=== PATIENT | female | born 1975 | race Caucasian/White ===

== ENCOUNTER 2022-06-02 08:44 | Outpatient (REF) | payer OTHER, SELFPAY ==
[2022-06-02 11:08] LABS: MANUAL DIFF FLAG NO
[2022-06-02 11:21] LABS: Basophils Percent Auto 0.3 % (0-2); Eosinophils Absolute Auto 0.1 X10*3/uL (0.0-0.4); Eosinophils Percent Auto 1.8 % (0-4); Hematocrit 40.8 % (37.0-47.0); Hemoglobin 13.3 g/dl (12.0-16.0); Imm Gran Abs Auto 0.02 X10*3/uL (0.00-0.03); Imm Gran Pct Auto 0.3 % (0.0-0.4); Lymphocytes Absolute Auto 1.6 X10*3/uL (1.2-4.9); Lymphocytes Percent Auto 25.2 % (20-40); Mean Corpuscular HGB Conc 32.6 g/dl (31.0-35.0); Mean Corpuscular Volume 95.1 fL (80.0-98.0); Mean Platelet Volume 10.7 fL (9.4-12.3); Monocytes Absolute Auto 0.3 X10*3/uL (0.1-1.2); Monocytes Percent Auto 5.1 % (2-11); Neutrophils Absolute Auto 4.4 x10*3/uL (2.0-8.3); Neutrophils Percent Auto 67.3 % (45-73); Platelet Count 385 X10*3/uL (160-400); Red Blood Count 4.29 X10*6/uL (4.20-5.50); Red Cell Distribution Width 11.8 % (11.0-16.0); White Blood Count 6.5 X10*3/uL (4.8-10.8)
[2022-06-02 12:29] LABS: Alanine Aminotransferase 42 U/L (0-31); Albumin Level 4.3 g/dL (3.5-5.0); Alkaline Phosphatase 115 U/L (39-117); Anion Gap 17 (12-20); Aspartate Amino Transferase 26 U/L (5-31); Bilirubin Total 0.5 mg/dL (0.0-1.0); Blood Urea Nitrogen 6 mg/dL (9-16); Calcium 9.4 mg/dL (8.4-10.2); Carbon Dioxide 23 mmol/L (22-29); Chloride 102 mmol/L (96-108); Cholesterol 229 mg/dL; Estimated Glomerular Filt Rate > 60; Glucose Fasting 97 mg/dL (60-99); HDL Cholesterol 42 mg/dL; LDL Cholesterol Calculated 156 mg/dl; Potassium 4.5 mmol/L (3.3-5.1); Sodium 137 mmol/L (135-145); Total Protein 7.3 g/dL (6.5-8.0); Triglycerides 158 mg/dL
[2022-06-02 12:55] LABS: Free T4 (Free Thyroxine) 1.36 ng/dL (0.71-1.85); Thyroid Stimulating Hormone 0.95 uIU/mL (0.32-4.0)
[2022-06-03 10:29] LABS: Triiodothyronine T3 Total 132 ng/dL (76-181)
== END 2022-06-02 08:45 | disposition home or self-care (01) ==
LOC: HO.WFDLDS 08:44
PROVIDERS: Visit Provider Family Medicine
DX: Z00.00 Encounter for general adult medical examination without abnormal findings (principal); E03.9 Hypothyroidism, unspecified; R00.0 Tachycardia, unspecified
CPT/HCPCS: 36415; 80053; 80061; 84439; 84443; 84480; 85025

== ENCOUNTER 2022-06-08 09:24 | Outpatient (REF) | payer OTHER, SELFPAY ==
--- NOTE | ~2022-06-08 | XR_ITS ---
EXAMINATION: XR CHEST CLINICAL INFORMATION: Tachycardia. COMPARISON: None TECHNIQUE: 2 views of the chest were obtained. FINDINGS: No significant abnormality is noted involving the heart, lungs, mediastinum, bony thorax or soft tissues. XR/XR chest 2V IMPRESSION: Unremarkable chest examination.
--- NOTE | 2022-06-08 18:10 | PFT_ITS ---
INDICATION: Shortness of breath. SPIROMETRY: FEV1 to FVC 88% with an FEV1 2.54 L, which is 95% predicted and FVC of 2.88 L, which is 86% predicted. No significant response to bronchodilator is noted. Maximum voluntary ventilation is 96% predicted. LUNGS VOLUMES: Total lung capacity 86% predicted with an expiratory residual volume of 21% predicted. DIFFUSION CAPACITY: DLCO 121% predicted. COMPARISON: None. INTERPRETATION: No obstructive or restrictive ventilatory defect identified. No significant response to bronchodilator is noted. Normal maximum voluntary ventilation. Lung volumes are relatively normal except for decrease in expiratory reserve volume which could be secondary to an elevated BMI. Diffusion capacity is significantly elevated suggesting the possibility of exogenous exposure to carbon monoxide such as smoking. Clinical correlation warranted. MD ALEXANDRA Wilson/KELLEE / [id number]
== END 2022-06-08 09:25 | disposition home or self-care (01) ==
LOC: HO.RESP 09:24
PROVIDERS: PCP Family Medicine; Visit Provider Family Medicine
DX: R06.02 Shortness of breath (principal); J45.909 Unspecified asthma, uncomplicated; R00.0 Tachycardia, unspecified
CPT/HCPCS: 71046; 94060; 94727; 94729

== ENCOUNTER 2023-06-06 12:32 | Outpatient (REF) | payer OTHER, SELFPAY ==
[2023-06-06 15:50] LABS: TSH reflex Free T4 0.07 uIU/mL (0.32-4.0)
[2023-06-06 16:24] LABS: Free T4 (Free Thyroxine) 1.41 ng/dL (0.71-1.85)
== END 2023-06-06 12:33 | disposition home or self-care (01) ==
LOC: HO.WFDLDS 12:32
PROVIDERS: Visit Provider Nurse Practitioner Family
DX: E03.9 Hypothyroidism, unspecified (principal)
CPT/HCPCS: 36415; 84439; 84443

== ENCOUNTER 2023-06-08 10:21 | Outpatient (AMB) | payer OTHER, SELFPAY ==
[2023-06-08 10:26] VITALS: BP 146/86; PULSE 114; RESP 13; TEMP 36.6; O2SAT 99; BMI 29.0
--- NOTE | 2023-06-08 10:26 | A.OFFPC_ITS ---
Vital Signs 06/08/23 10:26 Height 5 ft 2 in Weight 158 lb 8 oz BMI 29.0 BP 146/86 H Blood Pressure Location Rt brachial Position Sitting Respiration 13 Pulse 114 H Pulse Source Pulse Oximeter Temp 97.9 F Temp Source Temporal Artery Scan Pulse Oximetry (%) 99 Oxygen Delivery Method Room Air Intake Visit Reasons: GERD, Hypothyroidism Intake Note: Patient would like a refill on cyclobenzaprine. 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 Accompanied by: Self / Same As Patient Allergies erythromycin base [ERYTHROMYCIN BASE] Allergy (Intermediate, Verified 06/08/23 10:35) HIVES lorazepam [From ATIVAN] Allergy (Intermediate, Verified 06/08/23 10:35) PSVT doxylamine [From NYQUIL] Adverse Reaction (Intermediate, Verified 06/08/23 10:35) INSOMNIA ENVIRONMENTAL Allergy (Intermediate, Uncoded 12/20/19 16:34) SNEEZING; WATERY ITCHY EYES; RUNNY NOSE From AUGMENTIN Allergy (Unknown, Uncoded 12/20/19 16:34) HIVES From Augmentin Allergy (Unknown, Uncoded 12/20/19 16:34) HIVES From BENADRYL Adverse Reaction (Intermediate, Uncoded 12/20/19 16:34) AGITATION; PSVT From NYQUIL Adverse Reaction (Intermediate, Uncoded 12/20/19 16:34) INSOMNIA Tobacco use date assessed: 06/08/23 Dental Screening Dental Screen Date: 06/08/23 Did you have a dental visit in the last 12 months?: No Did you have a dental problem in the last 6 months where you did not have access to dental care?: No Was dental information given to patient?: Patient has dentist HPI GERD, Hypothyroidism HPI Details 48 y/o female presents to f/u hypothyroi dism, GERD. TSH level drawn 06/06/23. TSH worsened from 0.95 to 0.07. She is on levothyroxine 175 mcg daily. Blood pressure today 146/86, 114p and had been elevated before. Pt notes blood pressure at home have been good in the systolic 110s to 130s range. She states she has never had a colonoscopy. She is not interested in a cologuard test. [facility] Medical History (Updated 06/08/23 @ 11:55 by Carl Gallego) No pertinent past medical history Surgical History (Updated 06/08/23 @ 10:38 by Dari Peterson MA) No pertinent past surgical history Social History Housing: House Patient Tobacco Use Status: Never used Tobacco e-Cigarette/Vaping Use: Never Used service: No Current occupational status: unemployed Cognitive needs: No Hearing needs: No Vision needs: No Questionnaire Thrive Questionnaire Date Thrive assessed: 05/17/22 ELICIA-7 AMB Questionnaire ELICIA-7 Date ELICIA - 7 assessed: 05/17/22 Source: Developed by Drs. Noel Lujan, Deonna Gonzalez, Alphonso Pierson and colleagues, with an educational ravin from [employer]. Review of Systems Const Denies chills, Denies fatigue, Denies fever(s), Denies headache(s) and Denies w eakness ENT Denies dizziness and Denies headache(s) Card Denies dyspnea Resp Denies cough, Denies dyspnea, Denies wheezing and Denies other (shortness of breath) Musc Denies numbness and Denies tingling Neuro Denies dizziness, Denies headache(s), Denies numbness, Denies tingling and Denies weakness Psych Denies anxiety and Denies depression Endo Denies fatigue Aller/Immun Denies wheezing Physical exam (Primary Care) Vital Signs: Last Vital Signs Temp 97.9 F 06/08/23 10:26 Pulse 114 H 06/08/23 10:26 Resp 13 06/08/23 10:26 BP 146/86 H 06/08/23 10:26 Pulse Ox 99 06/08/23 10:26 Oxygen Delivery Method Room Air 06/08/23 10:26 BMI result Body Mass Index 29.0 Tobacco/Smoking Status: Tobacco use Status Tobacco use date assessed 06/08/23 06/08/23 10:38 Patient Tobacco Use Status Never used Tobacco 06/08/23 10:38 e-Cigarette/Vaping Use Never Used 06/08/23 10:38 Thrive Assessment: Date of Thrive Assessment Date Thrive assessed 05/17/22 06/08/23 10:38 Const General: well developed; No acute distress Nutritional Appearance: well nourished Orientation/consciousness: patient oriented x3 HENMT Head: Yes normocephalic and Yes atraumatic Eyes General: appearance normal, both eyes and all related structures Pupils: Equal, round and reactive pupils present EOM: EOMs intact bilaterally Resp Effort & Inspection: normal respiratory effort Cardio Rate: tachycardic Neuro General: patient oriented x3 and gait normal Cranial nerves: Yes Equal, round and reactive pupils present Psych Affect: normal affect Assessment and Plan Assessment & Plan (1) Hypothyroidism: Code(s): E03.9 - Hypothyroidism, unspecified Plan: TSH?mildly?suppressed. She?will?repeat?this We?discussed?that?if?it?continues?to?be? suppressed?we?may?want?to?decrease?her?levothyroxine?slightly (2) Tachycardia: Code(s): R00.0 - Tachycardia, unspecified Plan: Ongoing?tachycardia?and?there?is?clearly?some?white?coat?syndrome?associated?wit h?this?as?her?heart?rate?and?blood?pressures?are?better?at?home. May?be?multifacto rial?however?and?levothyroxine?level?may?be?a?bit?too?high.??Rechecking?TSH?winston alatorre (3) White coat syndrome without diagnosis of hypertension: Code(s): R03.0 - Elevated blood-pressure reading, without diagnosis of hypertension Plan: As?above,?patient?has?shown?a?log?where?blood?pressures?a re?in?prehypertensive?range?consistently?but?not?in?hypertensive?range. Heart?rates?are?in?the?90s?at?home. (4) Screening for cervical cancer: Code(s): Z12.4 - Encounter for screening for malignant neoplasm of cervix Plan: Followed?by? 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 Medications: Changed From cyclobenzaprine 10 mg PO BID PRN muscle spasm To cyclobenzaprine #20 tabs per 30 days 10 mg PO BID 30 days PRN 20 tabs 0RF muscle spasm Refilled omeprazole 40 mg PO DAILY 30 days 30 caps 0RF levothyroxine 175 mcg PO DAILY 30 days 30 tabs 0RF Coding Level of Care Code Est Pt Level 4 (64052) Diagnoses Hypothyroidism E03.9 Tachycardia R00.0 White coat syndrome without diagnosis of hypertension R03.0 Screening for cervical cancer Z12.4 Breast cancer screening by mammogram Z12.31 Screening for colon cancer Z12.11
== END 2023-06-08 12:09 | disposition home or self-care (01) ==
PROVIDERS: PCP Family Medicine; Visit Provider Family Medicine
DX: E03.9 Hypothyroidism, unspecified (principal); R00.0 Tachycardia, unspecified; R03.0 Elevated blood-pressure reading, without diagnosis of hypertension; Z12.31 Encounter for screening mammogram for malignant neoplasm of breast; Z12.11 Encounter for screening for malignant neoplasm of colon; K21.9 Gastro-esophageal reflux disease without esophagitis
CPT/HCPCS: 99214

== ENCOUNTER 2023-07-20 07:45 | Outpatient (REF) | payer OTHER, SELFPAY ==
[2023-07-20 12:25] LABS: Alanine Aminotransferase 29 U/L (0-31); Albumin Level 4.1 g/dL (3.5-5.0); Alkaline Phosphatase 93 U/L (39-117); Anion Gap 11 (12-20); Aspartate Amino Transferase 25 U/L (5-31); Bilirubin Total 0.5 mg/dL (0.0-1.0); Blood Urea Nitrogen 7 mg/dL (9-16); Calcium 9.2 mg/dL (8.4-10.2); Carbon Dioxide 25 mmol/L (22-29); Chloride 104 mmol/L (96-108); Cholesterol 175 mg/dL (<200); Estimated Glomerular Filt Rate > 60; Glucose Fasting 93 mg/dL (60-99); HDL Cholesterol 49 mg/dL (>40); LDL Cholesterol Calculated 112 mg/dL (<100); Potassium 4.3 mmol/L (3.3-5.1); Sodium 136 mmol/L (135-145); Triglycerides 74 mg/dL (<150)
[2023-07-20 12:44] LABS: Free T4 (Free Thyroxine) 1.21 ng/dL (0.71-1.85); Thyroid Stimulating Hormone 0.36 uIU/mL (0.32-4.0)
[2023-07-21 09:03] LABS: Triiodothyronine T3 Total 110 ng/dL (76-181)
== END 2023-07-20 07:46 | disposition home or self-care (01) ==
LOC: HO.WFDLDS 07:45
PROVIDERS: Visit Provider Family Medicine
DX: Z00.00 Encounter for general adult medical examination without abnormal findings (principal); R74.01 Elevation of levels of liver transaminase levels; E78.00 Pure hypercholesterolemia, unspecified; E03.9 Hypothyroidism, unspecified
CPT/HCPCS: 36415; 80053; 80061; 84439; 84443; 84480

== ENCOUNTER → 2023-08-10 10:40 | Outpatient (AMB) | payer OTHER, SELFPAY ==
--- NOTE | 2023-08-10 10:42 | A.OFFPC_ITS ---
Vital Signs 08/10/23 10:43 Height 5 ft 2 in Weight 155 lb BMI 28.3 BP 148/78 H Blood Pressure Location Lt brachial Position Sitting Pulse 97 Pulse Source Pulse Oximeter Pulse Oximetry (%) 99 Oxygen Delivery Method Room Air Intake Visit Reasons: hypothyroidism hyperlipidemia and elevated liver. Intake Note: Patient is here to follow up on her blood work. She would also like refill of Ventolin and Flonase today. Allergies erythromycin base [ERYTHROMYCIN BASE] Allergy (Intermediate, Verified 08/10/23 10:44) HIVES lorazepam [From ATIVAN] Allergy (Intermediate, Verified 08/10/23 10:44) PSVT doxylamine [From NYQUIL] Adverse Reaction (Intermediate, Verified 08/10/23 10:44) INSOMNIA ENVIRONMENTAL Allergy (Intermediate, Uncoded 08/10/23 10:44) SNEEZING; WATERY ITCHY EYES; RUNNY NOSE From AUGMENTIN Allergy (Unknown, Uncoded 08/10/23 10:44) HIVES From Augmentin Allergy (Unknown, Uncoded 08/10/23 10:44) HIVES From BENADRYL Adverse Reaction (Intermediate, Uncoded 08/10/23 10:44) AGITATION; PSVT From NYQUIL Adverse Reaction (Intermediate, Uncoded 08/10/23 10:44) INSOMNIA Medication List - Last Reconciled 08/10/23 by Brien Macias MD albuterol 90 mcg/actuation mcg inhalation cyclobenzaprine 10 mg PO BID PRN 30 days fluticasone propionate 50 mcg/actuation 2 sprays intranasal DAILY 30 days fluticasone propionate 220 mcg/actuation 2 puffs inhalation BID 30 days levonorgestrel-ethinyl estrad 0.15 mg-30 mcg (91) 1 tab PO DAILY levothyroxine 150 mcg PO DAILY 90 days mometasone (Asmanex Twisthaler) 2 inhalations inhalation BID 30 days omeprazole 40 mg PO DAILY 90 days Tobacco use date assessed: 08/10/23 Dental Screening Dental Screen Date: 08/10/23 Did you have a dental visit in the last 12 months?: No Did you have a dental problem in the last 6 months where you did not have access to dental care?: No Was dental information given to patient?: Patient has dentist HPI hypothyroidism hyperlipidemia and elevated liver. HPI Details 48 y/o female presents to f/u hypothyroi dism, hyperlipidemia and elevated liver enzymes. Labs were drawn 07/20/23. Reviewed labs with pt. Triglycerides 74. TC 175. LDL improved from 156 to 112. HDL 49. TSH improved from 0.07 to 0.36. She is on levothyroxine 150mcg daily. Liver enzymes improved from 42 to 29. HPI Comments History of Present Illness Details Documentation assistance for Brien Macias MD, was provided by Carl Gallego, Scrap Sorter on 08/10/2023 11:06 AM EST. Tavarez, Dr. Macias, have read, observed, and verified documentation. [facility] Medical History No pertinent past medical history Surgical History No pertinent past surgical history Social History Housing: House Patient Tobacco Use Status: Never used Tobacco e-Cigarette/Vaping Use: Never Used service: No Current occupational status: unemployed Cognitive needs: No Hearing needs: No Vision needs: Yes (Patient wears glasses.) Questionnaire PHQ-9 Over the last 2 weeks, how often have you been bothered by any of the following problems? 1. Little interest or pleasure in doing things: not at all 2. Feeling down, depressed, or hopeless: not at all 3. Trouble falling or staying asleep, or sleeping too much: not at all 4. Feeling tired or having little energy: not at all 5. Poor appetite or overeating: not at all 6. Feeling bad about yourself - or that you are a failure or have let yourself or your family down: not at all 7. Trouble concentrating on things, such as reading the newspaper or watching television: not at all 8. Moving or speaking so slowly that other people could have noticed. Or the opposite - being so fidgety or restless that you have been moving around a lot more than usual: not at all 9. Thoughts that you would be better off or of hurting yourself in some way: not at all Total score: 0 Depression Screening Interpretation: Negative Depression Screening Done: Yes 40523 - PHQ-9 Billing: Yes Source: Developed by Drs. Noel Lujan, Alphonso Lorenzana and colleagues, with an educational ravin from [employer]. Thrive Questionnaire Date Thrive assessed: 08/10/23 I am a: Patient What is your living situation today?: I have a steady place to live Within the past 12 months, did the food you bought not last and you didn't have the money to get more?: Never true Within the past 12 months, did you worry whether your food would run out before you got money to buy more?: Never true Do you have trouble paying for medicines?: No Do you have trouble getting transportation to medical appointments?: No Do you have trouble paying your heating and electricity bill?: No Do you have trouble taking care of your child, family member or friend?: No Do you have trouble with day-to-day activities such as bathing, preparing meals, shopping, managing finances, etc.?: No Are you currently unemployed and looking for a job?: No Are you interested in more education?: No THRIVE Score: 0 AUDIT C Alcohol Use Questionnaire (AUDIT-C) 1. How often do you have a drink containing alcohol?: 4 or more times a week 2. How many drinks containing alcohol do you have on a typical day when you are drinking?: 1 or 2 3. How often do you have six or more drinks on one occasion?: Never Total Score: 4 ELICIA-7 AMB Questionnaire ELICIA-7 Date ELICIA - 7 assessed: 08/10/23 Feeling nervous, anxious, or on edge: 0 = Not at all Not being able to stop or control worryin = Not at all Worrying too much about different things: 0 = Not at all Trouble relaxin = Not at all Being so restless that it is hard to sit still: 0 = Not at all Becoming easily annoyed or irritable: 0 = Not at all Feeling afraid as if something awful might happen: 0 = Not at all Total ELICIA-7 score (0-4 normal; 5-9 mild; 10-14 moderate; 15-21 severe): 0 Source: Developed by Drs. Noel Lujan, Deonna Gonzalez, Alphonso Pierson and colleagues, with an educational ravin from [employer]. ELICIA-7 Assessment Billing ELICIA-7 Assessment Tool: ELICIA-7 Assessment 82269 Review of Systems Const Denies chills, Denies fatigue, Denies fever(s), Denies headache(s) and Denies weakness ENT Denies dizziness and Denies headache(s) Card Denies chest pain, Denies lightheadedness, Denies dyspnea and Denies other (Palpitations) Resp Denies cough, Denies dyspnea, Denies wheezing and Denies other ( shortness of breath) Musc Denies numbness and Denies tingling Neuro Denies dizziness, Denies headache(s), Denies numbness, Denies tingling, Denies paresthesias and Denies weakness Psych Denies anxiety and Denies depression Endo Denies fatigue Aller/Immun Denies wheezing Physical exam (Primary Care) Vital Signs: Last Vital Signs Pulse 97 08/10/23 10:43 BP 148/78 H 08/10/23 10:43 Pulse Ox 99 08/10/23 10:43 Oxygen Delivery Method Room Air 08/10/23 10:43 BMI result Body Mass Index 28.3 Tobacco/Smoking Status: Tobacco use Status Tobacco use date assessed 08/10/23 08/10/23 10:54 Patient Tobacco Use Status Never used Tobacco 08/10/23 10:43 e-Cigarette/Vaping Use Never Used 08/10/23 10:43 PHQ-9: PHQ-9 Score PHQ-9: Total score 0 08/10/23 11:06 Depression Screening Interpretation: Negative Thrive Assessment: Date of Thrive Assessment Date Thrive assessed 08/10/23 08/10/23 10:54 Const General: no acute distress and well developed Nutritional Appearance: well nourished Orientation/consciousness: patient oriented x3 [facility] Head: Yes normocephalic and Yes atraumatic Eyes General: appearance normal, both eyes and all related structures Pupils: Equal, round and reactive pupils present EOM: EOMs intact bilaterally Resp Effort & Inspection: normal respiratory effort Auscultation: clear to auscultation bilaterally Cardio Rate: regular rate Rhythm: regular rhythm Heart sounds: S1 normal heart sound present, S2 normal heart sound present, no gallops, no murmurs and no rubs Neuro General: patient oriented x3 and gait normal Cranial nerves: Yes Equal, round and reactive pupils present Psych Affect: normal affect Assessment and Plan Assessment & Plan (1) Hypothyroidism: Code(s): E03.9 - Hypothyroidism, unspecified Plan: Levothyroxine?was?decreased?from?175?mcg?to?150?mcg?daily TSH,?free?T4?and?total?T3?are?all?now?within?normal?range Continue?current?medication (2) Elevated ALT measurement: Code(s): R74.01 - Elevation of levels of liver transaminase levels Plan: She?had?had?mild?ALT?elevation.??Liver?enzymes?now?within?normal?range?with?repe at?lab?work. (3) Elevated LDL cholesterol level: Code(s): E78.00 - Pure hypercholesterolemia, unspecified Plan: Patient?had?had?history?of?elevated?cholesterol.??She?was?encouraged?to?work?at? a?diet?low?in?saturated?fats?and?cholesterol?and?increase?exercise. Lipid?levels?all?now?within?normal?range Encouraged?her?to?continue?lifestyle?changes. (4) White coat syndrome without diagnosis of hypertension: Code(s): R03.0 - Elevated blood-pressure reading, without diagnosis of hypertension Plan: Blood?pressure?in?office?is?elevated.??She?has?brought?in?logs?of?her?blood?pres sures?in?the?past?and?has?clear?white?coat?syndrome Will?continue?to?monitor?at?home. Orders: Orders Comprehensive [place]. Panel Fast Today Z00.00 - Encounter for general adult medical examination without abnormal findings Lipid Panel Today Z00.00 - Encounter for general adult medical examination without abnormal findings Triiodothyronine T3 Total Today E03.9 - Hypothyroidism, unspecified Microalbumin, Random (w Creat) Today I10 - Essential (primary) hypertension UA and rflx microscopic Today Z00.00 - Encounter for general adult medical examination without abnormal findings Free T4 (Free Thyroxine) Today E03.9 - Hypothyroidism, unspecified Thyroid Stimulating Hormone Today E03.9 - Hypothyroidism, unspecified Medications: New albuterol sulfate 90 mcg/actuation (Ventolin HFA) 2 puffs inhalation Q4-6H 30 days PRN 8.5 grams 6RF shortness of breath or wheezing Refilled fluticasone propionate 220 mcg/actuation 2 puffs inhalation BID 30 days 12 grams 3RF R06.02 - Shortness of breath Coding Level of Care Code Est Pt Level 4 (80479) Diagnoses Hypothyroidism E03.9 Elevated ALT measurement R74.01 Elevated LDL cholesterol level E78.00 White coat syndrome without diagnosis of hypertension R03.0 Additional Codes ELICIA-7 Assessment Billing - ELICIA-7 Assessment Tool: ELICIA-7 Assessment [id number] ([id number])
[2023-08-10 10:43] VITALS: BP 148/78; PULSE 97; O2SAT 99; BMI 28.3
== END ==
PROVIDERS: PCP Family Medicine; Visit Provider Family Medicine
DX: E03.9 Hypothyroidism, unspecified (principal); R74.01 Elevation of levels of liver transaminase levels; E78.00 Pure hypercholesterolemia, unspecified; R03.0 Elevated blood-pressure reading, without diagnosis of hypertension
CPT/HCPCS: 99214

== ENCOUNTER 2024-02-20 08:24 | Outpatient (REF) | payer OTHER, SELFPAY ==
[2024-02-20 12:13] LABS: Alanine Aminotransferase 40 U/L (0-31); Albumin Level 4.3 g/dL (3.5-5.0); Alkaline Phosphatase 83 U/L (39-117); Anion Gap 13 (12-20); Aspartate Amino Transferase 28 U/L (5-31); Bilirubin Total 0.4 mg/dL (0.0-1.0); Blood Urea Nitrogen 6 mg/dL (9-16); Calcium 9.3 mg/dL (8.4-10.2); Carbon Dioxide 25 mmol/L (22-29); Chloride 103 mmol/L (96-108); Cholesterol 201 mg/dL (<200); Estimated Glomerular Filt Rate > 60; Glucose Fasting 95 mg/dL (60-99); HDL Cholesterol 54 mg/dL (>40); LDL Cholesterol Calculated 126 mg/dL (<100); Sodium 137 mmol/L (135-145); Total Protein 7.3 g/dL (6.5-8.0); Triglycerides 106 mg/dL (<150)
[2024-02-20 12:41] LABS: Free T4 (Free Thyroxine) 1.29 ng/dL (0.71-1.85); Thyroid Stimulating Hormone 0.73 uIU/mL (0.32-4.0)
[2024-02-21 07:54] LABS: Triiodothyronine T3 Total 92 ng/dL (76-181)
== END 2024-02-20 08:25 | disposition home or self-care (01) ==
LOC: HO.WFDLDS 08:24
PROVIDERS: Visit Provider Family Medicine
DX: Z00.00 Encounter for general adult medical examination without abnormal findings (principal); E78.00 Pure hypercholesterolemia, unspecified; E03.9 Hypothyroidism, unspecified
CPT/HCPCS: 36415; 80053; 80061; 84439; 84443; 84480

== ENCOUNTER 2024-02-23 10:20 | Outpatient (AMB) | payer OTHER, SELFPAY ==
--- NOTE | 2024-02-23 10:24 | MHC.PC.OV ---
Vital Signs 02/23/24 10:27 Height 5 ft 2 in Weight 150 lb BMI 27.4 BP 146/80 H Blood Pressure Location Rt brachial Position Sitting Respiration 18 Pulse 101 H Pulse Source Pulse Oximeter Temp 99.7 F Temp Source Temporal Artery Scan Pulse Oximetry (%) 98 Oxygen Delivery Method Room Air Intake Visit Reasons: med refill/ lab FU Intake Note: medication refill and lab review Allergies erythromycin base [ERYTHROMYCIN BASE] Allergy (Intermediate, Verified 02/23/24 10:25) HIVES lorazepam [From ATIVAN] Allergy (Intermediate, Verified 02/23/24 10:25) PSVT doxylamine [From NYQUIL] Adverse Reaction (Intermediate, Verified 02/23/24 10:25) INSOMNIA ENVIRONMENTAL Allergy (Intermediate, Uncoded 08/10/23 10:44) SNEEZING; WATERY ITCHY EYES; RUNNY NOSE From AUGMENTIN Allergy (Unknown, Uncoded 08/10/23 10:44) HIVES From Augmentin Allergy (Unknown, Uncoded 08/10/23 10:44) HIVES From BENADRYL Adverse Reaction (Intermediate, Uncoded 08/10/23 10:44) AGITATION; PSVT From NYQUIL Adverse Reaction (Intermediate, Uncoded 08/10/23 10:44) INSOMNIA Tobacco use date assessed: 08/10/23 Dental Screening Dental Screen Date: 08/10/23 HPI med refill/ lab FU HPI Details 48 y/o female presents for an extended exam with f/u labs and health maintenance. Labs drawn 02/20/24. Reviewed labs with pt. Triglycerides 106. TC 201. LDL 126. HDL 54. TSH level 0.73. She is on levothyroxine 150mcg daily. HPI Comments History of Present Illness Details Documentation assistance for Brien Macias MD, was provided by Carl Gallego, [employer] Machine Operator Helper on 02/23/2024 at 11:19 AM EST. I, Dr. Macias, have read, observed, and verified documentation. [facility] Medical History No pertinent past medical history Surgical History No pertinent past surgical history Social History Housing: House Patient Tobacco Use Status: Never used Tobacco e-Cigarette/Vaping Use: Never Used service: No Current occupational status: unemployed Cognitive needs: No Hearing needs: No Vision needs: Yes (Patient wears glasses.) Questionnaire PHQ-9 Over the last 2 weeks, how often have you been bothered by any of the following problems? 1. Little interest or pleasure in doing things: not at all 2. Feeling down, depressed, or hopeless: not at all 3. Trouble falling or staying asleep, or sleeping too much: not at all 4. Feeling tired or having little energy: not at all 5. Poor appetite or overeating: not at all 6. Feeling bad about yourself - or that you are a failure or have let yourself or your family down: not at all 7. Trouble concentrating on things, such as reading the newspaper or watching television: not at all 8. Moving or speaking so slowly that other people could have noticed. Or the opposite - being so fidgety or restless that you have been moving around a lot more than usual: not at all 9. Thoughts that you would be better off or of hurting yourself in some way: not at all Total score: 0 Source: Developed by Drs. Noel Lujan, Deonna Gonzalez, Alphonso Pierson and colleagues, with an educational ravin from [employer]. Thrive Questionnaire Date Thrive assessed: 08/10/23 I am a: Patient What is your living situation today?: I have a steady place to live Within the past 12 months, did the food you bought not last and you didn't have the money to get more?: I choose not to answer this question Within the past 12 months, did you worry whether your food would run out before you got money to buy more?: I choose not to answer this question Do you have trouble paying for medicines?: I choose not to answer this question Do you have trouble getting transportation to medical appointments?: I choose not to answer this question Do you have trouble paying your heating and electricity bill?: I choose not to answer this question Do you have trouble taking care of your child, family member or friend?: I choose not to answer this question Do you have trouble with day-to-day activities such as bathing, preparing meals, shopping, managing finances, etc.?: I choose not to answer this question Are you currently unemployed and looking for a job?: I choose not to answer this question Are you interested in more education?: I choose not to answer this question Please select the resources that you would like help with: None Currently or been in a relationship where the following occur: I choose not to answer THRIVE Score: 0 AUDIT C Alcohol Use Questionnaire (AUDIT-C) 1. How often do you have a drink containing alcohol?: 4 or more times a week 2. How many drinks containing alcohol do you have on a typical day when you are drinking?: 1 or 2 3. How often do you have six or more drinks on one occasion?: Never Total Score: 4 ELICIA-7 AMB Questionnaire ELICIA-7 Date ELICIA - 7 assessed: 08/10/23 Feeling nervous, anxious, or on edge: 0 = Not at all Not being able to stop or control worryin = Not at all Worrying too much about different things: 0 = Not at all Trouble relaxin = Not at all Being so restless that it is hard to sit still: 0 = Not at all Becoming easily annoyed or irritable: 0 = Not at all Feeling afraid as if something awful might happen: 0 = Not at all Total ELICIA-7 score (0-4 normal; 5-9 mild; 10-14 moderate; 15-21 severe): 0 Source: Developed by Drs. Noel Lujan, Deonna Gonzalez, Alphonso Pierson and colleagues, with an educational ravin from [employer]. Review of Systems Const Denies chills, Denies fatigue, Denies fever(s), Denies headache(s) and Denies weakness Eyes Denies change in vision ENT Denies dizziness, Denies headache(s), Denies hearing loss, Denies nasal congestion, Denies sinus pain, Denies sinus pressure and Denies sore throat Card Denies chest pain, Denies lightheadedness, Denies dyspnea and Denies other (palpitations) Resp Denies cough, Denies dyspnea and Denies wheezing GI Denies abdominal pain, Denies melena, Denies hematochezia, Denies change in bowel habits, Denies dyspepsia and Denies nausea Denies hematuria and Denies dysuria Musc Denies abnormal gait, Denies myalgias, Denies arthralgias, Denies numbness and Denies tingling Skin/Breast Denies rash, Denies unusual bruising and Denies wounds Neuro Denies abnormal gait, Denies dizziness, Denies headache(s), Denies memory loss, Denies numbness, Denies Sensory deficit (Neuro), Denies tingling and Denies weakness Psych Denies anxiety, Denies depression and Denies memory loss Endo Denies cold intolerance, Denies fatigue, Denies heat intolerance, Denies polydipsia and Denies polyuria Larry/Lymph Denies easy bleeding and Denies easy bruising Aller/Immun Denies wheezing Physical exam (Primary Care) Vital Signs: Last Vital Signs Temp 99.7 F 02/23/24 10:27 Pulse 101 H 02/23/24 10:27 Resp 18 02/23/24 10:27 BP 146/80 H 02/23/24 10:27 Pulse Ox 98 02/23/24 10:27 Oxygen Delivery Method Room Air 02/23/24 10:27 BMI result Body Mass Index 27.4 Tobacco/Smoking Status: Tobacco use Status Tobacco use date assessed 08/10/23 02/23/24 10:24 Patient Tobacco Use Status Never used Tobacco 02/23/24 10:24 e-Cigarette/Vaping Use Never Used 02/23/24 10:24 PHQ-9: PHQ-9 Score PHQ-9: Total score 0 02/23/24 10:24 Thrive Assessment: Date of Thrive Assessment Date Thrive assessed 08/10/23 02/23/24 10:24 Currently or been in a relationship where the following occur: I choose not to answer Const General: no acute distress, well developed, alert and awake Nutritional Appearance: well nourished Orientation/consciousness: patient oriented x3 HENMT Head: Yes normocephalic and Yes atraumatic Ears: hearing grossly normal bilaterally and TM's normal bilaterally General nose exam: Normal external nose present and Normal nares present Mouth: Normal oral and palatal mucosa present and moist mucous membranes Teeth and gingiva: dentition normal Throat: Yes posterior oropharynx normal Eyes General: appearance normal, both eyes and all related structures Pupils: Equal, round and reactive pupils present and Pupil accommodation reflex normal EOM: EOMs intact bilaterally Neck Neck: Yes normal visual inspection, Yes no lymphadenopathy and Yes trachea midline Thyroid: Thyroid normal Carotids: no bruits Lymphatic: no lymphadenopathy noted Chest Chest palpation & inspection: normal inspection of the chest Resp Effort & Inspection: normal respiratory effort Auscultation: clear to auscultation bilaterally Cardio Rate: regular rate Rhythm: regular rhythm Heart sounds: S1 normal heart sound present, S2 normal heart sound present, no gallops, no murmurs and no rubs Bruits: no abdominal aortic bruits and no carotid bruits GI Palpation (GI): No Abdominal aortic bruit present, Soft to palpation, nontender, No hepatosplenomegaly present and No Rebound tenderness present Auscultation: normal bowel sounds General: Yes no CVA tenderness Back/Spine/Pelvis Back: no CVA tenderness Cervical Spine: cervical ROM normal and No Cervical spine tenderness Thoracic/Lumbar Spine: thoraco-lumbar ROM normal, No pain with thoraco-lumbar ROM, No thoracic spinal tenderness and No lumbar spinal tenderness Skin Lesions: no lesions Rashes: no rashes Trauma: no lacerations or abrasions Wounds: no wounds Nails: normal Neuro General: patient oriented x3 Cranial nerves: Yes Equal, round and reactive pupils present Cognition (Neuro): normal cognition Gait exam (Neuro): Normal gait present Motor exam (neuro): 5/5 motor strength present throughout Sensory Exam: No Sensory deficit (Neuro) Deep tendon reflexes (DTR's): Right patellar reflex intensity grade: 2+ and Left patellar reflex intensity grade: 2+ Extrem General: Yes normal to inspection and No edema Psych Appearance: grossly normal Affect: normal affect Attitude: cooperative Thought process: Normal thought process present Coding Level of Care Code Est Pt Level 4 (61430) Diagnoses White coat syndrome without diagnosis of hypertension R03.0 Elevated LDL cholesterol level E78.00 Hypothyroidism E03.9 Screening for cervical cancer Z12.4 Breast cancer screening by mammogram Z12.31 Elevated ALT measurement R74.01 Screening for colon cancer Z12.11 Adult general medical exam Z00.00 Assessment & Plan Assessment & Plan (1) White coat syndrome without diagnosis of hypertension: Code(s): R03.0 - Elevated blood-pressure reading, without diagnosis of hypertension Category: Medical Plan: Longstanding?white?coat?syndrome. Patient?says?blood?pressures?at?home?are?120s?over?70s Asked?her?check?periodically?bring?log?in?to?office?for?review?when?she?is?scheduled?for?appointments (2) Elevated LDL cholesterol level: Code(s): E78.00 - Pure hypercholesterolemia, unspecified Category: Medical Plan: LDL?cholesterol?is?above?goal?of?less?100 She?will?work?lifestyle?changes (3) Hypothyroidism: Code(s): E03.9 - Hypothyroidism, unspecified Category: Medical Plan: She?is?on?levothyroxine Thyroid?hormone?levels?within?range Continue?medication (4) Screening for cervical cancer: Code(s): Z12.4 - Encounter for screening for malignant neoplasm of cervix Category: Medical Plan: 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and?she?has?declined?is?again.??She?thinks?she?may?consider?at?age?49 Will?continue?recommend (8) Adult general medical exam: Code(s): Z00.00 - Encounter for general adult medical examination without abnormal findings Category: Medical Plan: 48-year-old?female?presents?for?an?extended?exam Encouraged?healthy?diet?lifestyle?and?of?exercise Orders: Orders US abdomen fowler w elastography Today R74.01 - Elevation of levels of liver transaminase levels Medications: Changed From fluticasone propionate 50 mcg/actuation administer into each nostril 2 sprays intranasal DAILY 30 days 16 grams 1RF To fluticasone propionate 50 mcg/actuation administer into each nostril 2 sprays intranasal DAILY 90 days 48 grams 3RF
[2024-02-23 10:27] VITALS: BP 146/80; PULSE 101; RESP 18; TEMP 37.6; O2SAT 98; BMI 27.4
== END 2024-02-23 11:32 | disposition home or self-care (01) ==
PROVIDERS: PCP Family Medicine; Visit Provider Family Medicine
DX: R03.0 Elevated blood-pressure reading, without diagnosis of hypertension (principal); E78.00 Pure hypercholesterolemia, unspecified; E03.9 Hypothyroidism, unspecified; Z12.4 Encounter for screening for malignant neoplasm of cervix; Z12.31 Encounter for screening mammogram for malignant neoplasm of breast; R74.01 Elevation of levels of liver transaminase levels; Z12.11 Encounter for screening for malignant neoplasm of colon; Z00.00 Encounter for general adult medical examination without abnormal findings

== ENCOUNTER → 2024-02-23 10:20 | Outpatient (BNVA) | payer OTHER, SELFPAY | PROVIDERS: PCP Family Medicine; Visit Provider Family Medicine | DX: R03.0 Elevated blood-pressure reading, without diagnosis of hypertension (principal); E78.00 Pure hypercholesterolemia, unspecified; E03.9 Hypothyroidism, unspecified; R74.01 Elevation of levels of liver transaminase levels | CPT/HCPCS: 99212 ==

== ENCOUNTER 2024-04-20 07:45 | Outpatient (REF) | payer OTHER, SELFPAY ==
--- NOTE | ~2024-04-20 | US_ITS ---
EXAMINATION: US ABDOMEN LIMITED WITH LIVER ELASTOGRAPHY HISTORY: R74.01 - Elevation of levels of liver transaminase levels TECHNIQUE: Real-time grayscale ultrasound imaging of the abdomen was performed and images were reviewed. COMPARISON: There are no prior studies available for comparison. The report from a prior examination dated 09/02/2015 was reviewed. FINDINGS: Liver: The liver is normal in size and demonstrates homogeneous echotexture. There is a 0.7 x 0.6 x 1.3 cm echogenic area in the right lobe which may represent a hemangioma. This was described on the prior report. No intrahepatic biliary ductal dilatation is identified. There is normal hepatopedal flow in the portal vein. Ultrasound elastography of the liver was performed with 10 separate measurements of the liver parenchyma with the patient in the supine position. Measurements were obtained approximately 2 cm below Ev's capsule and perpendicular to the capsule. Images are of satisfactory quality. The median shear wave velocity is 1.02 m/s. The interquartile range/median (IQR/median) is 0.12. Gallbladder and biliary tree: The gallbladder is unremarkable, without evidence of calculi, wall thickening, or pericholecystic fluid. There is no sonographic Roca sign. The common bile duct is normal in caliber measuring 4 mm. Kidneys: The right kidney measures 10.8 cm in length. The right kidney is unremarkable, without evidence of masses, hydronephrosis, or calculi. Pancreas: The pancreatic head, neck, and body are unremarkable. The pancreatic tail is obscured by bowel gas. Abdominal aorta and inferior vena cava: The visualized portions of the abdominal aorta and inferior vena cava are normal in caliber. There is no free fluid in the abdomen. US/US abdomen fowler w elastography IMPRESSION: Probable 0.7 x 0.6 x 1.3 cm hemangioma in the right lobe of the liver, described on a remote study dated 09/02/2015. The median shear wave velocity is 1.02 m/s, corresponding to a median liver stiffness of 3.1 kPa. The IQR/median value is 0.12. This is indicative of a quality data set. Findings are indicative of a normal elastography value with a low likelihood of severe fibrosis or cirrhosis. REFERENCE: Society of Radiologists in Ultrasound Liver Stiffness Thresholds (2020): LIVER STIFFNESS THRESHOLDS: *Shear wave velocity less than 1.3 m/s (Liver Stiffness equal or less than 5 kPa): High probability of being normal. *Shear wave velocity less than 1.7 m/s (Liver Stiffness less than 9 kPa): In the absence of other known clinical signs, rules out compensated advanced chronic liver disease. *Shear wave velocity between 1.7-2.1 m/s (Liver Stiffness 9-13 kPa): Suggestive of compensated advanced chronic liver disease but need further test for confirmation. *Shear wave velocity between 2.1-2.4 m/s (Liver Stiffness 13-17 kPa): Rules in compensated advanced chronic liver disease. *Shear wave velocity greater than 2.4 m/s (Liver Stiffness over 17 kPa): Suggestive of clinically significant portal hypertension. QUALITY OF DATA SET: *IQR/Median value equal or less than 0.15 implies a quality data set. *IQR/Median value over 0.15 implies a poor quality data set. SIGNIFICANT CHANGE FROM PRIOR EXAM: Significant change if liver stiffness measurement is 10% or greater from prior exam. OTHER CONSIDERATIONS: The stage of liver fibrosis may be overestimated in the setting of acute hepatitis, liver inflammation, elevated liver function tests, hepatic vascular congestion, obstructive cholestasis, non-fasting state, and infiltrative diseases such as amyloidosis and lymphoma. In some patients with NAFLD, the liver stiffness thresholds for compensated advanced chronic liver disease may be lower. In causes other than viral hepatitis and NAFLD, liver stiffness thresholds are not well established. Electronically signed by: Noel Mcclendon MD 04/20/2024 09:56 AM [facility] [place]
== END 2024-04-20 07:46 | disposition home or self-care (01) ==
LOC: HO.US 07:45
PROVIDERS: PCP Family Medicine; Visit Provider Family Medicine
DX: R74.01 Elevation of levels of liver transaminase levels (principal)
CPT/HCPCS: 76705; 76981

== ENCOUNTER → 2024-04-20 07:47 | Outpatient (BNV) | payer OTHER, SELFPAY | PROVIDERS: PCP Family Medicine; Visit Provider Radiology Diagnostic Radiology | DX: R74.01 Elevation of levels of liver transaminase levels (principal) | CPT/HCPCS: 76705 ==

== ENCOUNTER → 2024-05-25 15:59 | Outpatient (AMB) | payer OTHER, SELFPAY ==
--- NOTE | 2024-05-25 15:55 | MHC.PC.OV ---
Intake Visit Reasons: f/u ultrasound via telemedicine Allergies erythromycin base [ERYTHROMYCIN BASE] Allergy (Intermediate, Verified 05/25/24 15:56) HIVES lorazepam [From ATIVAN] Allergy (Intermediate, Verified 05/25/24 15:56) PSVT doxylamine [From NYQUIL] Adverse Reaction (Intermediate, Verified 05/25/24 15:56) INSOMNIA ENVIRONMENTAL Allergy (Intermediate, Uncoded 08/10/23 10:44) SNEEZING; WATERY ITCHY EYES; RUNNY NOSE From AUGMENTIN Allergy (Unknown, Uncoded 08/10/23 10:44) HIVES From Augmentin Allergy (Unknown, Uncoded 08/10/23 10:44) HIVES From BENADRYL Adverse Reaction (Intermediate, Uncoded 08/10/23 10:44) AGITATION; PSVT From NYQUIL Adverse Reaction (Intermediate, Uncoded 08/10/23 10:44) INSOMNIA Medication List - Last Reconciled 05/25/24 by Brien Macias MD albuterol sulfate 90 mcg/actuation (Ventolin HFA) 2 puffs inhalation Q4-6H PRN 90 days cyclobenzaprine 10 mg PO BID PRN 30 days fluticasone propionate 50 mcg/actuation 2 sprays intranasal DAILY 90 days levonorgestrel-ethinyl estrad 0.15 mg-30 mcg (91) 1 tab PO DAILY levothyroxine 150 mcg PO DAILY 90 days omeprazole 40 mg PO DAILY 90 days Tobacco use date assessed: 08/10/23 Dental Screening Dental Screen Date: 08/10/23 HPI f/u ultrasound via telemedicine HPI Details 49 y/o female presents to f/u ultrasound via telemedicine. Liver ultrasound shows: Probable 0.7 x 0.6 x 1.3 cm hemangioma in the right lobe of the liver, described on a remote study dated 09/02/2015. The median shear wave velocity is 1.02 m/s, corresponding to a median liver stiffness of 3.1 kPa. The IQR/median value is 0.12. This is indicative of a quality data set. Findings are indicative of a normal elastography value with a low likelihood of severe fibrosis or cirrhosis. HPI Comments History of Present Illness Details Documentation assistance for Brien Macias MD, was provided by Carl Gallego, Aircraft Maintenance Technician on 05/25/2024 at 4:14 PM EST. I, Dr. Macias, have read, observed, and verified documentation. ?? [facility] Medical History No pertinent past medical history Surgical History No pertinent past surgical history Social History Housing: House Patient Tobacco Use Status: Never used Tobacco e-Cigarette/Vaping Use: Never Used service: No Current occupational status: unemployed Cognitive needs: No Hearing needs: No Vision needs: Yes (Patient wears glasses.) Questionnaire Thrive Questionnaire Date Thrive assessed: 02/23/24 I am a: Patient What is your living situation today?: I have a steady place to live Within the past 12 months, did the food you bought not last and you didn't have the money to get more?: I choose not to answer this question Within the past 12 months, did you worry whether your food would run out before you got money to buy more?: I choose not to answer this question Do you have trouble paying for medicines?: I choose not to answer this question Do you have trouble getting transportation to medical appointments?: I choose not to answer this question Do you have trouble paying your heating and electricity bill?: I choose not to answer this question Do you have trouble taking care of your child, family member or friend?: I choose not to answer this question Do you have trouble with day-to-day activities such as bathing, preparing meals, shopping, managing finances, etc.?: I choose not to answer this question Are you currently unemployed and looking for a job?: I choose not to answer this question Are you interested in more education?: I choose not to answer this question Please select the resources that you would like help with: None Currently or been in a relationship where the following occur: I choose not to answer THRIVE Score: 0 AUDIT C Alcohol Use Questionnaire (AUDIT-C) 2. How many drinks containing alcohol do you have on a typical day when you are drinking?: 1 or 2 3. How often do you have six or more drinks on one occasion?: Never Total Score: 0 ELICIA-7 AMB Questionnaire ELICIA-7 Date ELICIA - 7 assessed: 08/10/23 Source: Developed by Drs. Noel Lujan, Deonna Gonzalez, Alphonso Pierson and colleagues, with an educational ravin from [employer]. Review of Systems Const Denies chills, Denies fatigue, Denies fever(s), Denies headache(s) and Denies weakness ENT Denies dizziness and Denies headache(s) Card Denies dyspnea Resp Denies cough, Denies dyspnea, Denies wheezing and Denies other (shortness of breath) Musc Denies numbness and Denies tingling Neuro Denies dizziness, Denies headache(s), Denies numbness, Denies tingling and Denies weakness Psych Denies anxiety and Denies depression Endo Denies fatigue Aller/Immun Denies wheezing Physical exam (Primary Care) Tobacco/Smoking Status: Tobacco use Status Tobacco use date assessed 08/10/23 05/25/24 15:57 Patient Tobacco Use Status Never used Tobacco 05/25/24 15:57 e-Cigarette/Vaping Use Never Used 05/25/24 15:57 Thrive Assessment: Date of Thrive Assessment Date Thrive assessed 02/23/24 05/25/24 15:57 Currently or been in a relationship where the following occur: I choose not to answer Telehealth Telehealth Telehealth Platform: Telephone Location of provider rendering services: practice address Location of patient: address on file Patient Identification confirmed using: Name, : Yes Telehealth method: voice only Patient verbally consented to treatment: Yes Patient verbally consented to billing insurance company: Yes Patient informed of any privacy concerns related to visit: Yes Minutes spent on Phone/Video with Pt.: 5 Coding Level of Care Code Tele Est Pt Level 2 (34744) Diagnoses Elevated ALT measurement R74.01 Hypothyroidism E03.9 Assessment & Plan Assessment & Plan (1) Elevated ALT measurement: Code(s): R74.01 - Elevation of levels of liver transaminase levels Category: Medical Plan: Ultrasound?of?liver?shows hemangioma?and?this?was?compared?with?distant?imaging?that?showed?the?same. No?hepatic?steatosis?or?other?masses Elastography?is?within?normal?range Will?continue?to?monitor?liver?enzymes periodically (2) Hypothyroidism: Code(s): E03.9 - Hypothyroidism, unspecified Category: Medical Plan: Thyroid?hormone?levels?were?within?normal?limits?at?last?check. Will?repeat?these?prior?to?her?next?visit?in?a?few?months. Orders: Orders Comprehensive Met. Panel Today E78.00 - Pure hypercholesterolemia, unspecified Free T4 (Free Thyroxine) Today E03.9 - Hypothyroidism, unspecified Thyroid Stimulating Hormone Today E03.9 - Hypothyroidism, unspecified Triiodothyronine T3 Total Today E03.9 - Hypothyroidism, unspecified
--- OUTSIDE RECORDS SUMMARY | 2024-05-25 16:01 | XMS_ITS | Clinical Summary ---
Author Organization [facility] Address [address] [place] [address] Care Team Providers Care Banking Services Officer Name Role Phone Calvin Alexandermartha Primary Care Provider [phone] Allergies Active Allergy Reactions Criticality Noted Date Comments Amoxicillin-Pot Clavulanate Hives 05/30/19 15 Doxycycline 09/13/2017 GI Erythromycin Hives 05/30/2014 Lorazepam Other 05/30/2014 Medications ascorbic acid (VITAMIN C) 500 mg tablet Take 500 mg by mouth. 7-10 tabs daily Active glucosamine-cho ndroit-vit C-Mn capsule Take by mouth. Active magnesium oxide 500 mg magnesium tablet Take by mouth. Active multivitamin (MULTIPLE VITAMINS ORAL) Take 1 Tab by mouth daily. Active UNABLE TO FIND MIXTURE ADDITIVE Take 3 Caps by mouth daily. With black pepper extract 750 mg Active albuterol HFA (ProAir HFA) 90 mcg/actuation inhaler Inhale 2 Puffs into the lungs 4 times daily as needed for Cough or Wheezing. 11/16/2021 Active cyclobenzaprine (FLEXERIL) 10 mg tablet Take 1 Tablet by mouth 2 times daily as needed for Muscle spasms. 11/16/2021 Active fluticasone HFA (FLOVENT HFA) 110 mcg/actuation inhaler Inhale 2 Puffs into the lungs 2 times daily. Rinse mouth after using 11/16/2021 Active fluticasone propionate (FLONASE) 50 mcg/actuation nasal spray 2 Sprays by Nasal route daily. 11/16/2021 Active levonorgestrel- ethinyl estradiol (SEASONALE) 0.15 mg-30 mcg (91) per tablet Take 1 tablet by mouth 1 (one) time each day. 01/27/2024 Active levothyroxine (SYNTHROID, LEVOTHROID) 175 mcg tablet Take 1 tablet (175 mcg total) by mouth 1 (one) time each day. 06/03/2022 Active omeprazole (PriLOSEC) [address] capsule Take 1 capsule (40 mg total) by mouth 1 (one) time each day. 11/16/2021 Active Active Problems Problem Noted Date Diagnosed Date Moderate persistent asthma 11/16/2021 Chronic headache disorder 11/04/2014 Overview (03/10/2024): Onset age teens Throat pain 11/04/2014 Overview (03/10/2024): Onset early thirties. CTS (carpal tunnel syndrome) 06/07/2014 Overview (03/10/2024): Bilateral CTR Exercise-induced asthma 06/07/2014 Allergic rhinitis 05/30/2014 Cervical disc herniation 05/30/2014 Overview (03/10/2024): C5-6 discectomy with cord decompression, removal of osteophytes GERD (gastroesophageal reflux disease) 5 Overview (03/10/2024): Onset approx age teens Hypothyroid 05/30/2014 Overview (03/10/2024): Thyroid surgery for hyperthyroidism Low back pain 05/30/2014 Overview (03/10/2024): Lumbar disc herniation T12-L1, small Ovarian cyst 05/30/2014 Pure hypercholesterolemia 05/30/2014 Uterine fibroid 05/30/2014 White coat syndrome with hig h blood pressure but without hypertension 05/30/2014 Immunizations Name Administration Dates Next Due Influenza trivalent, 0.5mL, preservative free (Fluarix; FluLaval; Fluzone) ages 6mo and older (Afluria) 3 years and older 02/12/2015 Pfizer (ages 12 & older) Bivalent, COVID-19 0 09/2021 Pfizer SARS-CoV-2 COVID-19, mRNA, LNP-S, preservative free 08/18/2020,07/28/2020 Tdap Tetanus diptheria acell ular pertussis (Boostrix; Adacel) 7yo and older 07/23/2010 Surgical History Surgery Date Site/Laterality Comments NECK SURGERY 2011 PROCEDURE: HISTORICAL NECK SURGERY; COMMENT: C5-6 cervical discectomy CARPAL TUNNEL RELEASE 2010 Bilateral PROCEDURE: HISTORICAL CARPAL TUNNEL REL; COMMENT: both in 2010 OTHER SURGICAL HISTORY 11/15/2014 PROCEDURE: RADIOLOGIC EXAM ESOPHAGUS SINGLE CONTRAST STUDY; COMMENT: [facility]; Normal. Medical History Medical History Date Comments Uterine fibroid 05/30/2014 DX:Uterine fibro id Ovarian cyst 05/30/2014 DX:Ovarian cyst Exercise-induced asthma 06/07/2014 DX:Exerc ise-induced asthma CTS (carpal tunnel syndrome) 06/07/2014 DX: CTS (carpal tunnel syndrome); COMMENT: Bilateral CTR Low back pain 05/30/2014 DX:Low back pain Chronic headache disorder 11/04/2014 DX:Chr onic headache disorder; COMMENT: Onset age teens Throat pain 11/04/2014 DX:Throat pain; COMMENT: Onset early thirties. Vegan diet 08/03/2018 DX:Vegan diet Family History Medical History Relation Name Comments Other: thyroid disease Brother Heart failure Father heart transpla nt, stroke Lymphoma Father non-Hodgkins Ly mphoma Thyroid disease Father Hypertension Mother cholesterol Breast cancer Paternal Grandmother over t he age of 50, unilateral Colon cancer Neg Hx Ovarian cancer Neg Hx Pancreatic cancer Neg Hx Prostate cancer Neg Hx Uterine cancer Neg Hx Relation Name Status Comments Brother Father alive at 66 as of 2014 Mother Alive alive at 64 as of 2014 Paternal Grandmother Social History Tobacco Use Types Packs/Day Years Used Date Smoking Tobacco: Former Cigarettes Q uit: 05/30/2007 Smokeless Tobacco: Never Alcohol Use Standard Drinks/Week Comments Yes 0 (1 standard drink = 0.6 oz pur e alcohol) Comments Unknown Sex and Gender Information Value Date Recorded Sex Assigned at Female 03/10/2024 8:44 PM EST Legal Sex Female 1:44 PM EST Gender Identity Female 03/10/2024 8:44 PM EST Sexual Orientation Lesbian or Thakur 03/10/2024 8: 44 PM EST Obstetrics History Last Filed Vital Signs Vital Sign Reading Time Taken Comments Blood Pressure 151/78 12/14/2022 11:16 AM EDT Sitting L Arm Pulse - - Temperature - - Respiratory Rate - - Oxygen Saturation - - Inhaled Oxygen Concentration - - Weight 79.9 kg (176 lb 3.2 oz) 12/14/2022 11:16 AM EDT Height 157.5 cm (5' 2 ) 12/14/2022 11:1 6 AM EDT Body Mass Index 32.23 12/14/2022 11:16 AM EDT Plan of Treatment Upcoming Encounters Date Type Department Care Team (Late st Contact Info) Description 06/08/2024 11:15 AM EST Office Visit Obstetrics and Gynecology - [place] [address] [place] [address] Criselda Lauren [facility] [address] [place] [address] Health Maintenance Due Date Last Done Comments Breast Cancer Screening 1974 Hepatitis B Vaccines (1 of 3 - 19+ 3-dose series) 1993 Pneumococcal Vaccine: 50+ Years (1 of 2 - PCV) 1993 Pneumococcal Vaccine: Pediatrics (0 to 5 Years) and At-Risk Patients (6 to 64 Years) (1 of 2 - PCV) 1993 DTaP,Tdap,and Td Vaccines (2 - Td or Tdap) 07/23/2020 07/23/2010 Colorectal Cancer Screening: Colonoscopy 03/13/2022 Depression Screening 03/13/2022 HIV Screening 03/13/2022 Hepatitis C Screening 03/13/2022 Social Influencers of Health Screening 03/13/2022 Hypertension/CHF/CAD Annual BMP Blood Test 09/24/2022 09/24/2021 Influenza Vaccine (#1) 2023 02/12/2015 Zoster Vaccines (1 of 2) 2024 Cervical Cancer Screening: HPV 11/24/2025 11/24/2020 Cholesterol Screening (Lipid Panel) 09/24/2026 09/24/2021 COVID-19 Vaccine Completed 02/13/2024, 10/2022, 03/09/2022, Additional history exists HIB Vaccines Aged Out No longer eligi ble based on patient's age to complete this topic HPV Vaccines Aged Out No longer eligi ble based on patient's age to complete this topic Hepatitis A Vaccines Aged Out No long er eligible based on patient's age to complete this topic IPV Vaccines Aged Out No longer eligi ble based on patient's age to complete this topic MMR Vaccines Aged Out No longer eligi ble based on patient's age to complete this topic Meningococcal ACWY Vaccine Aged Out N o longer eligible based on patient's age to complete this topic Meningococcal B Vacine Aged Out No lo nger eligible based on patient's age to complete this topic RSV Immunization Patients Under 20 months Aged Out No longer eligible based on patient's age to complete this topic Varicella Vaccines Aged Out No longer eligible based on patient's age to complete this topic Procedures Procedure Name Priority Date/Time Associated Diagnosis Comments ANNUAL BMP BLOOD TEST Routine 09/24/2021 LIPID PANEL Routine 09/24/2021 HPV Routine 11/24/2020 from Last 3 Months or Most Recently Relevant to Health Maintenance Results * Annual BMP Blood Test (09/24/2021) [facility] Annual BMP Blood Test abstracted [facility] Provider HEALTH MAINTENANCE Final Result * (ABNORMAL) Lipid panel (09/24/2021) [facility] LDL/HDL Ratio 5(A) <=4 Triglycerides 170(A) <=150 mg/dL Cholesterol 210(A) <=200 mg/dL HDL 47 >=40 mg/dL LDL Cholesterol 129(A) <=100 mg/dL Blood Venous blood specimen / Unknown Historical Provider LAB BLOOD ORDERABLES Amirah l Result * Cervical Cancer Screening: HPV (11/24/2020) [facility] Cervical Cancer Screening: HPV negative, abstracted Historical Provider HEALTH MAINTENANCE Final Result from Last 3 Months or Most Recently Relevant to Health Maintenance Insurance [facility] Care Teams Banking Services Officer Relationship Specialty Start Date End Date Cristopher Simpson DO [address] [place] [address] PCP - General Internal Medicine 04/06/21
== END ==
LOC: HO.HMCFM 15:59
PROVIDERS: PCP Family Medicine; Visit Provider Family Medicine
DX: R74.01 Elevation of levels of liver transaminase levels (principal); E03.9 Hypothyroidism, unspecified

== ENCOUNTER 2024-09-24 07:21 | Outpatient (REF) | payer OTHER, SELFPAY ==
[2024-09-24 08:26] LABS: Albumin Level 4.5 g/dL (3.5-5.0); Alkaline Phosphatase 79 U/L (39-117); Anion Gap 14 (12-20); Aspartate Amino Transferase 32 U/L (5-31); Bilirubin Total 0.4 mg/dL (0.0-1.0); Blood Urea Nitrogen 6 mg/dL (9-16); Calcium 9.3 mg/dL (8.4-10.2); Carbon Dioxide 24 mmol/L (22-29); Chloride 102 mmol/L (96-108); Cholesterol 204 mg/dL (<200); Estimated Glomerular Filt Rate > 60; Glucose Fasting 105 mg/dL (60-99); Glucose Random 104 mg/dL (60-115); HDL Cholesterol 44 mg/dL (>40); LDL Cholesterol Calculated 126 mg/dL (<100); Potassium 4.6 mmol/L (3.3-5.1); Sodium 135 mmol/L (135-145); Total Protein 7.5 g/dL (6.5-8.0); Triglycerides 173 mg/dL (<150)
[2024-09-24 08:37] LABS: Alanine Aminotransferase 36 U/L (0-31); Free T4 (Free Thyroxine) 1.22 ng/dL (0.71-1.85); Thyroid Stimulating Hormone 0.87 uIU/mL (0.32-4.0)
[2024-09-25 06:53] LABS: Triiodothyronine T3 Total 100 ng/dL (76-181)
== END 2024-09-24 07:22 | disposition home or self-care (01) ==
LOC: HO.LAB 07:21
PROVIDERS: PCP Family Medicine; Visit Provider Family Medicine
DX: Z00.00 Encounter for general adult medical examination without abnormal findings (principal); E03.9 Hypothyroidism, unspecified; E78.00 Pure hypercholesterolemia, unspecified
CPT/HCPCS: 36415; 80053; 80061; 84439; 84443; 84480

== ENCOUNTER → 2024-09-28 16:10 | Outpatient (BNVA) | payer OTHER, SELFPAY | PROVIDERS: PCP Family Medicine; Visit Provider Family Medicine | DX: R73.01 Impaired fasting glucose (principal); E78.00 Pure hypercholesterolemia, unspecified; E03.9 Hypothyroidism, unspecified; R74.8 Abnormal levels of other serum enzymes; I10 Essential (primary) hypertension | CPT/HCPCS: 96127 ==

== ENCOUNTER → 2024-09-28 16:10 | Outpatient (AMB) | payer OTHER, SELFPAY ==
--- NOTE | 2024-09-28 16:05 | A.OFFPC_ITS ---
Intake Visit Reasons: f/u labs Intake Note: Follow up medcation and labs. Soils Analyst Required: No Allergies erythromycin base (ERYTHROMYCIN BASE) Allergy (Intermediate, Verified 09/28/24 16:06) HIVES lorazepam (From ATIVAN) Allergy (Intermediate, Verified 09/28/24 16:06) PSVT doxylamine (From NYQUIL) Adverse Reaction (Intermediate, Verified 09/28/24 16:06) INSOMNIA ENVIRONMENTAL Allergy (Intermediate, Uncoded 09/28/24 16:06) SNEEZING; WATERY ITCHY EYES; RUNNY NOSE From AUGMENTIN Allergy (Unknown, Uncoded 09/28/24 16:06) HIVES From Augmentin Allergy (Unknown, Uncoded 09/28/24 16:06) HIVES From BENADRYL Adverse Reaction (Intermediate, Uncoded 09/28/24 16:06) AGITATION; PSVT From NYQUIL Adverse Reaction (Intermediate, Uncoded 09/28/24 16:06) INSOMNIA Medication List - Last Reconciled 09/28/24 by Brien Macias MD albuterol sulfate 90 mcg/actuation (Ventolin HFA) 2 puffs inhalation Q4-6H PRN 90 days cyclobenzaprine 10 mg PO BID PRN 30 days fluticasone propionate 50 mcg/actuation 2 sprays intranasal DAILY 90 days levonorgestrel-ethinyl estrad 0.15 mg-30 mcg (91) 1 tab PO DAILY levothyroxine 150 mcg PO DAILY 90 days omeprazole 40 mg PO DAILY 90 days Tobacco use date assessed: 09/28/24 Dental Screening Dental Screen Date: 09/28/24 Did you have a dental visit in the last 12 months?: Yes Did you have a dental problem in the last 6 months where you did not have access to dental care?: No Was dental information given to patient?: Patient has dentist HPI f/u labs HPI Details 49 y/o female presents to f/u labs. Labs drawn 09/24/24. Reviewed labs with pt. Fasting glucose 105. Elevated liver enzymes - AST 32, ALT 36. Triglycerides 173. TC 204. LDL 126. HDL 44. TSH 0.87. PFSH Medical History No pertinent past medical history Surgical History No pertinent past surgical history Social History (Updated 09/28/24 @ 16:11 by Jamila Rivera CMA) Housing: House Alcohol intake: current Patient Tobacco Use Status: Former Tobacco user Years Smoked: unknown e-Cigarette/Vaping Use: Never Used Second Hand Smoke Exposure: No Use of substances other than those prescribed or required for medical reasons: No service: No Current occupational status: unemployed Cognitive needs: No Hearing needs: No Vision needs: Yes (Patient wears glasses.) Questionnaire PHQ-9 Over the last 2 weeks, how often have you been bothered by any of the following problems? 1. Little interest or pleasure in doing things: not at all 2. Feeling down, depressed, or hopeless: not at all 3. Trouble falling or staying asleep, or sleeping too much: not at all 4. Feeling tired or having little energy: not at all 5. Poor appetite or overeating: not at all 6. Feeling bad about yourself - or that you are a failure or have let yourself or your family down: not at all 7. Trouble concentrating on things, such as reading the newspaper or watching t elevision: not at all 8. Moving or speaking so slowly that other people could have noticed. Or the opposite - being so fidgety or restless that you have been moving around a lot more than usual: not at all 9. Thoughts that you would be better off or of hurting yourself in some way: not at all Total score: 0 Depression Screening Interpretation: Negative Depression Screening Done: Yes 34732 - PHQ-9 Billing: Yes Source: Developed by Drs. Noel Lujan, Deonna Gonzalez, Alphonso Pierson and colleagues, with an educational ravin from [employer]. Thrive Questionnaire Date Thrive assessed: 09/28/24 I am a: Patient What is your living situation today?: I have a steady place to live Within the past 12 months, did the food you bought not last and you didn't have the money to get more?: I choose not to answer this question Within the past 12 months, did you worry whether your food would run out before you got money to buy more?: I choose not to answer this question Do you have trouble paying for medicines?: I choose not to answer this question Do you have trouble getting transportation to medical appointments?: I choose not to answer this question Do you have trouble paying your heating and electricity bill?: I choose not to answer this question Do you have trouble taking care of your child, family member or friend?: I choose not to answer this question Do you have trouble with day-to-day activities such as bathing, preparing meals, shopping, managing finances, etc.?: I choose not to answer this question Are you currently unemployed and looking for a job?: I choose not to answer this question Are you interested in more education?: I choose not to answer this question Please select the resources that you would like help with: None Currently or been in a relationship where the following occur: I choose not to answer THRIVE Score: 0 AUDIT C Alcohol Use Questionnaire (AUDIT-C) 1. How often do you have a drink containing alcohol?: 4 or more times a week 2. How many drinks containing alcohol do you have on a typical day when you are drinking?: 1 or 2 3. How often do you have six or more drinks on one occasion?: Never Total Score: 4 ELICIA-7 AMB Questionnaire ELICIA-7 Date ELICIA - 7 assessed: 08/10/23 Feeling nervous, anxious, or on edge: 0 = Not at all Not being able to stop or control worryin = Not at all Worrying too much about different things: 0 = Not at all Trouble relaxin = Not at all Being so restless that it is hard to sit still: 0 = Not at all Becoming easily annoyed or irritable: 3 = Nearly every day Feeling afraid as if something awful might happen: 0 = Not at all Total ELICIA-7 score (0-4 normal; 5-9 mild; 10-14 moderate; 15-21 severe): 3 Source: Developed by Drs. Noel Lujan, Deonna Gonzalez, Alphonso Pierson and colleagues, with an educational ravin from [employer]. ELICIA-7 Assessment Billing ELICIA-7 Assessment Tool: ELICIA-7 Assessment 86988 Review of Systems Const Denies chills, Denies fatigue, Denies fever(s), Denies headache(s) and Denies weakness ENT Denies dizziness and Denies headache(s) Card Denies dyspnea Resp Denies cough, Denies dyspnea, Denies wheezing and Denies other (shortness of breath) Musc Denies numbness and Denies tingling Neuro Denies dizziness, Denies headache(s), Denies numbness, Denies tingling and Denies weakness Psych Denies anxiety and Denies depression Endo Denies fatigue Aller/Immun Denies wheezing Physical exam (Primary Care) Tobacco/Smoking Status: Tobacco use Status Tobacco use date assessed 09/28/24 09/28/24 16:09 Patient Tobacco Use Status Former Tobacco user 09/28/24 16:11 e-Cigarette/Vaping Use Never Used 09/28/24 16:11 PHQ-9: PHQ-9 Score PHQ-9: Total score 0 09/28/24 16:32 Depression Screening Interpretation: Negative Thrive Assessment: Date of Thrive Assessment Date Thrive assessed 09/28/24 09/28/24 16:09 Currently or been in a relationship where the following occur: I choose not to answer Telehealth Telehealth Minutes spent on Phone/Video with Pt.: 6 Coding Level of Care Code Tele Est Pt Level 2 (73732) Diagnoses Elevated LDL cholesterol level E78.00 Elevated fasting glucose R73.01 Hypothyroidism E03.9 Elevated liver enzymes R74.8 Additional Codes ELICIA-7 Assessment Billing - ELICIA-7 Assessment Tool: ELICIA-7 Assessment 73225 ([id number]) PHQ-9 - 77277 - PHQ-9 Billing: Yes ([id number]) Assessment & Plan Assessment & Plan (1) Elevated LDL cholesterol level: Code(s): E78.00 - Pure hypercholesterolemia, unspecified Category: Medical Plan: Elevated?LDL?cholesterol?and?triglycerides Recommended?working?on?a?diet?lower?in?saturated?fats?and?cholesterol Work?on?exercise Will?continue?to?monitor?and?we?can?recheck?this?prior?to?physical?in?April (2) Elevated fasting glucose: Code(s): R73.01 - Impaired fasting glucose Category: Medical Plan: Mildly?elevated?fasting?blood?sugar Encouraged?a?diet?lower?in?sugars?and?starches (3) Hypothyroidism: Code(s): E03.9 - Hypothyroidism, unspecified Category: Medical Plan: TSH,?T4?and?total?T3?are?all?within?normal?range Continue?levothyroxine?as?prescribed (4) Elevated liver enzymes: Code(s): R74.8 - Abnormal levels of other serum enzymes Category: Medical Plan: Mildly?elevated?liver?enzymes. Patient?has?known?hemangioma?again?seen?on?liver?ultrasound No?other?masses?and?no?steatosis Liver?elastography?was?within?normal?range Orders: Orders Comprehensive [place]. Panel Fast Today R74.8 - Abnormal levels of other serum enzymes, Z00.00 - Encounter for general adult medical examination without abnormal findings Microalbumin, Random (w Creat) Today I10 - Essential (primary) hypertension Complete Blood Count Auto Diff Today Z00.00 - Encounter for general adult medical examination without abnormal findings Thyroid Stimulating Hormone Today E03.9 - Hypothyroidism, unspecified Free T4 (Free Thyroxine) Today E03.9 - Hypothyroidism, unspecified Hemoglobin A1c Today R73.01 - Impaired fasting glucose Lipid Panel Today E78.00 - Pure hypercholesterolemia, unspecified, Z00.00 - Encounter for general adult medical examination without abnormal findings Triiodothyronine T3 Total Today E03.9 - Hypothyroidism, unspecified
--- OUTSIDE RECORDS SUMMARY | 2024-09-28 16:12 | XMS_ITS | Clinical Summary ---
Author Organization [facility] [address] [facility] Address [address] [place] [address] Phone Care Team Providers Care Aquaculture Worker Name Role Phone Cristopher Simpson Primary Care Provider [phone] Allergies Active Allergy Reactions Criticality Noted Date [...] Sprays by Nasal route daily. 11/16/2021 Active levothyroxine (SYNTHROID, LEVOTHROID) 175 mcg tablet Take 1 tablet (175 mcg total) by mouth 1 (one) time each day. 06/03/2022 Active omeprazole (PriLOSEC) [address] capsule Take 1 capsule (40 mg total) by mouth 1 (one) time each day. 11/16/2021 Active fluticasone HFA (FLOVENT HFA) 220 mcg/actuation inhaler TAKE 2 PUFFS BY MOUTH TWICE A DAY FOR 90 DAYS 02/14/2024 Active levonorgestrel- ethinyl estradiol (SEASONALE) 0.15 mg-30 mcg (91) per tablet Take 1 tablet by mouth 1 (one) time each day. 91 tablet 3 07/10/2024 Active Active Problems Problem Noted Date Diagnosed [...] h blood pressure but without hypertension 05/30/2014 Encounters Date Type Department Care Team Description 07/24/2024 Telephone Obstetrics and Gynecology - [place] [address] [place] [address] Kevin Jennie [place] 07/10/2024 10:15 AM EDT Office Visit Obstetrics and Gynecology - [place] [address] [place] [id number] Criselda Lauren, CNM Women's annual routine gynecological examination (Primary Dx); Elevated blood pressure reading in office without diagnosis of hypertension; White coat syndrome with high blood pressure but without hypertension; Family history of breast cancer; Encounter for nonprocreative genetic counseling; Screening for genetic disease carrier status; Oral contraceptive pill surveillance; History of ovarian cyst from Last 3 Months Immunizations Name Administration Dates Next Due Influenza trivalent, 0.5mL, preservative free (Fluarix; FluLaval; Fluzone) ages 6mo and older (Afluria) 3 years and older 02/12/2015 Pfizer (ages 12 & older) Bivalent, COVID-19 12/0 09/2021 Pfizer SARS-CoV-2 COVID-19, mRNA, LNP-S, preservative [...] RADIOLOGIC EXAM ESOPHAGUS SINGLE CONTRAST STUDY; COMMENT: [facility]; Normal. Medical History Medical History [...] Sign Reading Time Taken Comments Blood Pressure 178/95 07/10/2024 10:15 AM EDT Pulse 98 07/10/2024 10:15 AM EDT Temperature - - Respiratory Rate - - Oxygen Saturation - - Inhaled Oxygen Concentration - - Weight 78.5 kg (173 lb) 07/10/2024 10:15 AM EDT Height 157.5 cm (5' 2 ) 12/14/2022 11:16 AM EDT Body Mass Index 31.64 12/14/2022 11:16 AM EDT Plan of Treatment Health Maintenance Due Date Last Done Comments [...] 07/23/2020 07/23/2010 Colorectal Cancer Screening: Colonoscopy 03/13/2022 HIV Screening 03/13/2022 Hepatitis C Screening 03/13/2022 Social Influencers of Health Screening 03/13/2022 Hypertension/CHF/CAD Annual BMP Blood Test 09/24/2022 09/24/2021 Zoster Vaccines (1 of 2) 2024 Influenza Vaccine (Season Ended) 2024 02/12/2015 Depression Screening 07/03/2025 07/03/2024 Cervical Cancer Screening: HPV 11/24/2025 11/24/2020 Cholesterol [...] age to complete this topic Meningococcal B Vaccine Aged Out No l onger eligible based on patient's age to complete this topic RSV Immunization Patients Under 20 months Aged Out No longer eligible based on patient's age to complete this topic Varicella Vaccines Aged Out No longer eligible based on patient's age to complete this topic Procedures Procedure Name Priority Date/Time Associated Diagnosis Comments Compositence CUSTOM Routine 07/21/2024 11:46 AM EDT VENIPUNCTURE CHARGE Routine 07/10/2024 1 1:30 AM EDT Family history of breast cancer Encounter for nonprocreative genetic counseling and testing Screening for genetic disease carrier status ANNUAL BMP BLOOD TEST Routine 09/24/2021 LIPID PANEL Routine 09/24/2021 HPV Routine 11/24/2020 from Last 3 Months or Most Recently Relevant to Health Maintenance Results * Portable [facility] (07/21/2024 11:46 AM EDT) Blood Venous blood specimen / Unknown Criselda Lauren CNM LAB MOLECULAR DIAGNOSTICS ORD ERABLES Final Result * Venipuncture charge (07/10/2024 11:30 AM EDT) [facility] Extra Tube Hold for add-ons. 07/10/2024 1:01 PM EDT [facility]) Comment:Auto resulted. Blood Venous blood specimen / Unknown Venipuncture / Unknown 07/10/2024 11:30 AM EDT 07/10/2024 11:30 AM EDT Criselda BACH LAB BLOOD ORDERABLES Final Re sult [facility]) [place], * Annual BMP Blood Test (09/24/2021) Pathologist [facility] Annual BMP Blood Test abstracted Historical Provider HEALTH MAINTENANCE Final Result * (ABNORMAL) Lipid panel (09/24/2021) [facility] LDL/HDL Ratio 5(A) <=4 Triglycerides 170(A) <=150 mg/dL Cholesterol 210(A) <=200 mg/dL HDL 47 >=40 mg/dL LDL Cholesterol 129(A) <=100 mg/dL Blood Venous blood specimen / Unknown Historical Provider LAB BLOOD ORDERABLES Amirah l Result * Cervical Cancer Screening: HPV (11/24/2020) [facility] Cervical Cancer Screening: HPV negative, abstracted Historical Provider HEALTH MAINTENANCE Final Result from Last 3 Months or Most Recently Relevant to Health Maintenance [place] [address] [employer] Care Teams Aquaculture Worker Relationship Specialty Start Date End Date Cristopher Simpson DO [address] [place] [address] PCP - General Internal Medicine 04/06/21
== END ==
LOC: HO.HMCFM 16:10
PROVIDERS: PCP Family Medicine; Visit Provider Family Medicine
DX: E78.00 Pure hypercholesterolemia, unspecified (principal); R73.01 Impaired fasting glucose; E03.9 Hypothyroidism, unspecified; R74.8 Abnormal levels of other serum enzymes